=== PATIENT | female | born 1990 | race Caucasian/White ===

== ENCOUNTER 2016-10-29 23:40 | Emergency (ER) | payer OTHER ==
[~2016-10-29] VITALS: Ht 160 cm; Wt 47.7 kg
[2016-10-29 23:44] VITALS: BP 132/92
== END 2016-10-30 00:33 | disposition left against medical advice (07) ==
LOC: EMS 23:43
DX: R51 Headache (principal); Z53.21 Procedure and treatment not carried out due to patient leaving prior to being seen by health care provider

== ENCOUNTER 2019-04-09 02:30 | Emergency (ER) | payer OTHER ==
[~2019-04-09] VITALS: Ht 160 cm; Wt 52.3 kg
[2019-04-09 03:08] LABS: BASOPHILS % (AUTO) 0.4 % (0.0-2.0); EOSINOPHILS % (AUTO) 2.2 % (1.0-6.0); HEMOGLOBIN 14.4 g/dL (12.0-16.0); LYMPHOCYTES # (AUTO) 2.2 K/uL (1.0-4.8); LYMPHOCYTES % (AUTO) 30.7 % (22.0-44.0); MEAN CORPUSCULAR HEMOGLOBIN 29.4 pg (26.0-34.0); MEAN CORPUSCULAR HGB CONC 33.5 G/dL (31.0-37.0); MEAN CORPUSCULAR VOLUME 88 fL (80-100); MONOCYTES # (AUTO) 0.5 K/uL (0.1-1.0); MONOCYTES % (AUTO) 6.6 % (2.0-9.0); NEUTROPHILS # (AUTO) 4.2 K/uL (1.8-7.7); NEUTROPHILS % (AUTO) 60.1 % (40.0-70.0); PLATELET COUNT (AUTO) 240 K/uL (150-450); RED BLOOD CELL COUNT(AUTO) 4.91 MIL/uL (4.00-5.20); RED CELL DISTRIBUTION WIDTH 12.8 % (11.5-14.5)
[2019-04-09 03:17] LABS: ANION GAP 10 mmol/L (8-16); CALCIUM, TOTAL 9.8 mg/dL (8.8-10.5); CARBON DIOXIDE 29 mmol/L (22-29); CHLORIDE 102 mmol/L (98-107); CREATININE 0.78 mg/dL (0.60-1.30); GLOMERULAR FILTR. RATE CALC > 60 mL/min (>60); GLUCOSE,RANDOM 97 mg/dL (70-110); POTASSIUM 4.1 mmol/L (3.5-5.1); SODIUM SERUM 141 mmol/L (136-145); UREA NITROGEN, BLOOD 9 mg/dL (7-18)
[2019-04-09 03:24] LABS: ALANINE AMINOTRANSFERASE 11 U/L (12-78); ALBUMIN 4.3 g/dL (3.4-5.0); ALKALINE PHOSPHATASE 73 U/L (46-116); ASPARTATE AMINOTRANSFERASE 14 U/L (15-37); BILIRUBIN,TOTAL 0.5 mg/dL (0.1-1.0); TOTAL PROTEIN, SERUM 7.9 g/dL (6.4-8.2)
[2019-04-09] MEDS ORDERED: LORazepam 1 MG TABLET PO ONE (03:45)
[2019-04-09] MEDS ORDERED: IBUPROFEN 600 MG TABLET PO ONE (03:45)
[2019-04-09 04:31] VITALS: BP 138/80
== END 2019-04-09 05:01 | disposition home or self-care (01) ==
LOC: EMS 02:31
DX: R07.89 Other chest pain (principal); F41.9 Anxiety disorder, unspecified; M62.830 Muscle spasm of back; M54.12 Radiculopathy, cervical region
CPT/HCPCS: 93005

== ENCOUNTER 2019-07-15 01:11 | Emergency (ER) | payer OTHER ==
[~2019-07-15] VITALS: Ht 160 cm; Wt 53.6 kg
[2019-07-15] MEDS ORDERED: KETOROLAC TROMETHAMINE 30 MG/ML VIAL IM ONE (04:00)
[2019-07-15 05:17] VITALS: BP 124/76
== END 2019-07-15 05:18 | disposition home or self-care (01) ==
LOC: EMS 01:13
DX: S29.011A Strain of muscle and tendon of front wall of thorax, initial encounter (principal); S30.0XXA Contusion of lower back and pelvis, initial encounter; W01.0XXA Fall on same level from slipping, tripping and stumbling without subsequent striking against object, initial encounter; Y93.89 Activity, other specified; Y92.89 Other specified places as the place of occurrence of the external cause; Y99.8 Other external cause status
CPT/HCPCS: 70450; 71101; 96372; 99284; J1885

== ENCOUNTER 2021-09-15 20:38 | Emergency (ER) | payer OTHER ==
[~2021-09-15] VITALS: Ht 160 cm; Wt 54.0 kg
[2021-09-15] MEDS ORDERED: ACETAMINOPHEN 500 MG TABLET PO ONE (21:30)
[2021-09-15 22:37] VITALS: BP 135/95
== END 2021-09-16 01:18 | disposition home or self-care (01) ==
LOC: EMS 20:42
DX: S06.0X0A Concussion without loss of consciousness, initial encounter (principal); W22.8XXA Striking against or struck by other objects, initial encounter; Y93.89 Activity, other specified; Y92.89 Other specified places as the place of occurrence of the external cause; Y99.8 Other external cause status
CPT/HCPCS: 70450; 99284

== ENCOUNTER 2022-09-12 22:17 | Emergency (ER) | payer OTHER ==
[~2022-09-12] VITALS: Ht 160 cm; Wt 59.1 kg
[2022-09-12 23:55] VITALS: BP 133/81
[2022-09-13] MEDS ORDERED: ACETAMINOPHEN/CODEINE 300-30 MG TABLET PO ONE (00:45)
[2022-09-13] MEDS: IBUPROFEN 600 MG TABLET PO ONE ×2 (01:29→01:31)
== END 2022-09-13 03:35 | disposition home or self-care (01) ==
LOC: EMS 22:21
DX: S06.0X0A Concussion without loss of consciousness, initial encounter (principal); S20.229A Contusion of unspecified back wall of thorax, initial encounter; W19.XXXA Unspecified fall, initial encounter; Y93.23 Activity, snow (alpine) (downhill) skiing, snowboarding, sledding, tobogganing and snow tubing; Y92.89 Other specified places as the place of occurrence of the external cause; Y99.8 Other external cause status
CPT/HCPCS: 70450; 72040; 72070; 99284

== ENCOUNTER 2023-01-02 18:59 | Emergency (ER) | payer OTHER ==
[~2023-01-02] VITALS: Ht 160 cm; Wt 59.1 kg
[2023-01-02 19:49] LABS: BASOPHILS % (AUTO) 1.1 % (0.0-2.0); EOSINOPHILS % (AUTO) 1.2 % (1.0-6.0); HEMOGLOBIN 13.6 g/dL (12.0-16.0); LYMPHOCYTES # (AUTO) 2.3 K/uL (1.0-4.8); LYMPHOCYTES % (AUTO) 27.1 % (22.0-44.0); MEAN CORPUSCULAR HEMOGLOBIN 28.4 pg (26.0-34.0); MEAN CORPUSCULAR VOLUME 84 fL (80-100); MONOCYTES # (AUTO) 0.4 K/uL (0.1-1.0); MONOCYTES % (AUTO) 5.3 % (2.0-9.0); NEUTROPHILS # (AUTO) 5.5 K/uL (1.8-7.7); NEUTROPHILS % (AUTO) 65.3 % (40.0-70.0); PLATELET COUNT (AUTO) 302 K/uL (150-450); RED BLOOD CELL COUNT(AUTO) 4.79 MIL/uL (4.00-5.20); RED CELL DISTRIBUTION WIDTH 12.7 % (11.5-14.5)
[2023-01-02 20:00] LABS: ANION GAP 11 mmol/L (8-16); CALCIUM, TOTAL 9.3 mg/dL (8.8-10.5); CARBON DIOXIDE 24 mmol/L (22-29); CHLORIDE 101 mmol/L (98-107); CREATININE 0.73 mg/dL (0.60-1.30); GLOMERULAR FILTR. RATE CALC > 60 mL/min (>60); GLUCOSE,RANDOM 93 mg/dL (70-110); POTASSIUM 3.3 mmol/L (3.5-5.1); SODIUM SERUM 136 mmol/L (136-145)
[2023-01-02] MEDS ORDERED: MAG HYDROX/AL HYDROX/SIMETH 30 ML SUSP UDCUP PO ONE (20:00)
[2023-01-02] MEDS ORDERED: FAMOTIDINE 20 MG TABLET PO ONE (20:00)
[2023-01-02] MEDS ORDERED: ACETAMINOPHEN 500 MG TABLET PO ONE (20:00)
[2023-01-02 20:09] LABS: B-TYPE NATRIURETIC PEPTIDE 5 pg/mL (0-100)
[2023-01-02 20:13] LABS: ALANINE AMINOTRANSFERASE 14 U/L (12-78); ALBUMIN 4.1 g/dL (3.4-5.0); ALKALINE PHOSPHATASE 76 U/L (46-116); ASPARTATE AMINOTRANSFERASE 15 U/L (15-37); BILIRUBIN,TOTAL 0.4 mg/dL (0.1-1.0); CREATINE KINASE, TOTAL ONLY 44 U/L (26-192); HCG,QUANTITATIVE < 1 mIU/mL (0-6); PHOSPHORUS 2.3 mg/dL (2.5-4.9); TOTAL PROTEIN, SERUM 8.3 g/dL (6.4-8.2)
[2023-01-02 20:35] LABS: APPEARANCE,URINE CLEAR (CLEAR); BILIRUBIN,URINE NEGATIVE (NEGATIVE); GLUCOSE, URINE (UA) NEGATIVE (NEGATIVE); KETONES,URINE NEGATIVE (NEGATIVE); LEUKOCYTE ESTERASE ,URINE MODERATE (NEGATIVE); NITRATE,URINE NEGATIVE (NEGATIVE); OCCULT BLOOD,URINE SMALL (NEGATIVE); PH,URINE 6.5 (5.0-8.0); PROTEIN,URINE NEGATIVE (NEGATIVE); SPECIFIC GRAVITIY, URINE 1.007 (1.003-1.030); UROBILINOGEN,URINE <=1.0 mg/dL (<=1.0)
[2023-01-02 20:50] LABS: RBC,URINE 0-2 /HPF (0-2)
[2023-01-02 20:51] LABS: BACTERIA,URINE None Seen /HPF (None Seen); SQUAMOUS EPITHELIAL CELL,UR Few /LPF (None Seen)
[2023-01-02 21:30] VITALS: BP 132/75
[2023-01-02] MEDS ORDERED: SODIUM,POTASSIUM PHOSPHATES POWDER PACKET PO ONE (21:45)
== END 2023-01-02 22:00 | disposition home or self-care (01) ==
LOC: EMS 18:59
DX: R07.89 Other chest pain (principal); E83.39 Other disorders of phosphorus metabolism
CPT/HCPCS: 71045; 80053; 81001; 82550; 83735; 83880; 84100; 84484; 84702; 85025; 93005; 99285; 36415-L1; 36415-TC